=== PATIENT | male | born 1945 | race American Indian/Alaskan Native ===

== ENCOUNTER 2017-07-29 13:21 | Emergency (ER) | payer MEDICAID, OTHER ==
[2017-07-29 13:21] VITALS: BMI 25.8
[2017-07-29 13:49] VITALS: BP 128/100; PULSE 67; RESP 18; TEMP 98.9; O2SAT 95
--- NOTE | 2017-07-29 14:23 | ED PDOC ---
Arrival/HPI - General Chief Complaint: Lower Extremity Problem/Injury Time Seen by Provider: 07/29/17 14:10 Historian: Patient - History of Present Illness Narrative History of Present Illness (Text): 07/29/17 14:22 71 year old male, whose past medical history includes, hypertension, hyperlipidema, hyperthyroidism, and tongue cancer diagnosed 18 years ago, presents to the emergency department complaining of pain and infection on this fourth and fifth right toe that began one and 1/2 month ago. Patient states he was scheduled to see a configuration management architect yesterday, but the doctor was on vacation. He states that he is retired and denies any fever, chills, chest pain, shortness of breath, nausea, vomiting, diarrhea, urinary symptoms, back pain, neck pain, headache, dizziness, or any other complaints. PMD: Dr. Burch Time/Duration: > month (month and 1/2 ) Symptom Onset: Gradual Symptom Course: Worsening Activities at Onset: Light Context: Home Past Medical History - Provider Review Nursing Documentation Reviewed: Yes - Infectious Disease Hx of Infectious Diseases: None - Tetanus Immunization Tetanus Immunization: Unknown - Past Medical History Past Medical History: No Previous - Cardiac Hx Hypertension: Yes - Pulmonary Other/Comment: smoker 1.5 ppd - Neurological Other/Comment: as per patient " pins and needles when walking" - Endocrine/Metabolic Hx Hypothyroidism: Yes - Hematological/Oncological Hx Blood Transfusions: No Hx Blood Transfusion Reaction: No - Musculoskeletal/Rheumatological Hx Falls: No - Gastrointestinal Hx Gastrointestinal Disorders: No - Genitourinary/Gynecological Hx Genitourinary Disorders: No Hx Reproductive Disorders: No - Psychiatric Hx Emotional Abuse: No Hx Physical Abuse: No Hx Substance Use: No - Past Surgical History Past Surgical History: No Previous - Anesthesia Hx Anesthesia Reactions: No Hx Malignant Hyperthermia: No - Suicidal Assessment Feels Threatened In Home Enviroment: No Family/Social History - Physician Review Nursing Documentation Reviewed: Yes Family/Social History: No Known Family HX Smoking Status: Heavy Smoker > 10 Cigarettes Daily Hx Alcohol Use: No (stopped 3 years ago) Hx Substance Use: No Hx Substance Use Treatment: No Allergies/Home Meds Allergies/Adverse Reactions: Allergies No Known Allergies Allergy (Verified 07/29/17 13:49) Home Medications: Home Meds Medication Instructions Recorded Confirmed Montelukast [Singulair] 10 mg PO DAILY 08/12/14 08/12/14 Primidone 50 mg PO DAILY 08/12/14 08/12/14 Simvastatin 40 mg PO DAILY 08/12/14 08/12/14 Aspirin [Aspirin Chewable] 81 mg PO DAILY 07/29/17 07/29/17 Cetirizine HCl [All Day Allergy 10 mg PO DAILY 07/29/17 07/29/17 Relief] Levothyroxine [Synthroid] 75 mcg PO DAILY 07/29/17 07/29/17 Review of Systems - Physician Review All systems were reviewed & negative as marked: Yes - Review of Systems Constitutional: absent: Other (Chills) Respiratory: absent: SOB Cardiovascular: absent: Chest Pain Gastrointestinal: absent: Diarrhea, Nausea, Vomiting Genitourinary Male: absent: Dysuria, Frequency, Hematuria Musculoskeletal: absent: Back Pain, Neck Pain Skin: Other (Infection between the fourth and fifth right toe) Neurological: absent: Headache, Dizziness Physical Exam Vital Signs Reviewed: Yes Vital Signs Temp Pulse Resp BP Pulse Ox 07/29/17 13:44 98.9 F 67 18 128/100 H 95 Temperature: Afebrile Blood Pressure: Normal Pulse: Regular Respiratory Rate: Normal Appearance: Positive for: Well-Appearing, Non-Toxic, Comfortable Pain Distress: None Mental Status: Positive for: Alert and Oriented X 3 - Systems Exam Mouth: Present: Moist Mucous Membranes Lower Extremity: Present: NORMAL PULSES, Normal ROM, Neurovascularly Intact. No : Edema, Swelling, Erythema Neurological: Present: GCS=15, CN II-XII Intact, Speech Normal, Motor Func Grossly Intact, Normal Sensory Function Skin: Present: Other (hyperkeratatic skin growth small fissure between the fourth and fifth right toe; no swelling or erythema). No: Warm Psychiatric: Present: Alert, Oriented x 3, Normal Insight, Normal Concentration Medical Decision Making ED Course and Treatment: 07/29/17 14:22 Impression: 71 year old male presents complaining of pain and skin growth on this fourth and fifth right toe that began one and 1/2 month ago. Plan: -- medical prescriptions and discharged -- Reassess and disposition Progress Notes: Case was discussed with the Podiatry resident civil division commander deputy sheriff who agrees with discharge plan with and antifungal cream and to follow up with Podiatry Dr. Lofton. Patient agrees with plan and will make sure to follow up. - Scribe Statement The provider has reviewed the documentation as recorded by the Lissethibe Woody Zhong All medical record entries made by the Lissethibsylvia were at my direction and personally dictated by me. I have reviewed the chart and agree that the record accurately reflects my personal performance of the history, physical exam, medical decision making, and the department course for this patient. I have also personally directed, reviewed, and agree with the discharge instructions and disposition. Disposition/Present on Arrival - Present on Arrival Any Indicators Present on Arrival: No History of DVT/PE: No History of Uncontrolled Diabetes: No Urinary Catheter: No History of Decub. Ulcer: No History Surgical Site Infection Following: None - Disposition Have Diagnosis and Disposition been Completed?: Yes Diagnosis: Tinea pedis Disposition: HOME/ ROUTINE Disposition Time: 14:25 Patient Plan: Discharge Condition: GOOD Discharge Instructions (ExitCare): Tinea Pedis (ED) Additional Instructions: Mr Freeman, thank you for letting us take care of you today. Your provider was Lida Cunningham. You were treated for Tinea Pedis. The emergency medical care you received today was directed at your acute symptoms. If you were prescribed any medication, please fill it and take as directed. It may take several days for your symptoms to resolve. Return to the Emergency Department if your symptoms worsen, do not improve, or if you have any other problems. Please contact your doctor or call one of the physicians/clinics you have been referred to that are listed on the Patient Visit Information form that is included in your discharge packet. Bring any paperwork you were given at discharge with you along with any medications you are taking to your follow up visit. Our treatment cannot replace ongoing medical care by a primary care provider (PCP) outside of the emergency department. Thank you for allowing the [facility] team to be part of your care today. If you had an X-Ray or CT scan: A Radiologist will review the ED reading if any change in treatment is needed we will contact you. If you had a blood, urine, or wound culture: It will take several days for the results, if any change in treatment is needed we will contact you. If you had an STI test: It will take 48 hours for the results. Please call after 1 week if you have not heard back. Prescriptions: Clotrimazole 1% Cream [Lotrimin 1%] 30 applic EXT BID #1 tube Ibuprofen [Motrin] 600 mg PO Q6 PRN #30 tab PRN Reason: Pain, Moderate (4-7) Referrals: Shantel Burch MD [Primary Care Provider] - Follow up with primary Yoli Lofton DPM [Staff Provider] - Follow up with primary Forms: Tagwhat (German)
== END 2017-07-29 14:54 | disposition home or self-care (01) ==
LOC: ED 13:21
DX: B35.3 Tinea pedis (principal)